=== PATIENT | male | born 1960 | race Caucasian/White ===

== ENCOUNTER 2017-06-11 09:58 | Inpatient (IN) ==
[2017-06-11] MEDS ORDERED: LORazepam 2 MG/ML VIAL ONE (10:08)
[2017-06-11] MEDS ORDERED: 0.9 % SODIUM CHLORIDE 2,000 ML IV ONE (10:12)
[2017-06-11] MEDS ORDERED: LORazepam 2 MG/ML VIAL IV ONE ×3 (10:13→10:29)
[2017-06-11] MEDS ORDERED: fentaNYL 100 MCG/2 ML VIAL IV ONE ×4 (10:16→11:05)
[2017-06-11] MEDS ORDERED: cefTRIAXone 1 GM VIAL ONE (10:24)
[2017-06-11] MEDS ORDERED: LACTATED RINGERS 1,000 ML IV ONE (10:30)
[2017-06-11] MEDS: LORazepam 2 MG/ML VIAL ONE ×2 (10:30→10:31)
[2017-06-11] MEDS ORDERED: cefTRIAXone 1 GM VIAL IV ONE (10:32)
[2017-06-11] MEDS ORDERED: DIPH,PERTUSS(ACELL),TET VAC/PF 0.5 ML SYRINGE IM ONE (10:35)
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
[2017-06-11 10:46] LABS: Basophils # (Auto) 0 K/mcL (0.0-0.3); Basophils % (Auto) 0.3 % (0.0-2.0); Eosinophils # (Auto) 0.3 K/mcL (0.0-0.7); Eosinophils % (Auto) 2.4 % (0.0-7.0); Granulocytes % (Auto) 76.9 % (38.0-78.0); Lymphocytes # (Auto) 1.4 K/mcL (1.5-4.8); Lymphocytes % (Auto) 12.4 % (15.5-49.0); Mean Cell Volume 96.8 fL (80.0-100.0); Mean Corpuscular HGB Conc 34.8 g/dL (31.0-36.0); Mean Corpuscular Hemoglobin 33.7 pg (26.0-34.0); Monocytes # (Auto) 0.9 K/mcL (0.1-0.9); Platelet Count 165 K/mcL (140-440); RBC 3.88 M/mcL (4.50-5.90); Red Cell Distribution Width 12.9 % (11.5-14.5)
[2017-06-11] MEDS ORDERED: ETOMIDATE 20 MG/10 ML VIAL IV ONE (11:05)
[2017-06-11] MEDS ORDERED: ONDANSETRON 4 MG/2 ML VIAL IV ONE (11:05)
[2017-06-11] MEDS ORDERED: GLYCOPYRROLATE 0.2 MG/ML VIAL IV ONE (11:05)
[2017-06-11] MEDS ORDERED: KETAMINE 100 MG/ML ML IV ONE (11:05)
[2017-06-11] MEDS ORDERED: SUCCINYLCHOLINE 20 MG/ML ML IV ONE (11:05)
[2017-06-11] MEDS ORDERED: MIDAZOLAM 2 MG/2 ML VIAL IV ONE (11:05)
[2017-06-11] MEDS ORDERED: LIDOCAINE HCL/PF 100 MG/5 ML SYRINGE IV ONE (11:05)
[2017-06-11 11:07] LABS: ALT/SGPT 42 U/l (0-40); Albumin 4.1 gm/dL (3.2-5.2); Albumin/Globulin Ratio 2.1 (1.0-2.3); Alkaline Phosphatase 56 U/L (39-117); Blood Urea Nitrogen 7 mg/dl (6-20)
[2017-06-11 11:09] LABS: Acetaminophen < 5.0 ug/mL; Salicylate 1.1 mg/dL
[2017-06-11] MEDS ORDERED: MEPERIDINE 25 MG/ML SYRINGE IV PRN (12:22)
[2017-06-11] MEDS ORDERED: IPRATROPIUM/ALBUTEROL 3 ML AMPUL.NEB NEB PRN (12:22)
[2017-06-11] MEDS ORDERED: fentaNYL 100 MCG/2 ML VIAL IV PRN (12:22)
[2017-06-11] MEDS ORDERED: PROMETHAZINE 25 MG/ML VIAL IV PRN ×2 (12:22→13:36)
[2017-06-11] MEDS ORDERED: ONDANSETRON 4 MG/2 ML VIAL IV PRN (12:22)
[2017-06-11] MEDS ORDERED: LACTATED RINGERS 1,000 ML IV SCH (12:30)
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
[2017-06-11] MEDS ORDERED: BACITRACIN 50,000 UNIT VIAL IR ONE (13:28)
[2017-06-11] MEDS ORDERED: cefTRIAXone 1 GM in DEXTROSE 5% IN WATER 50 ML IV SCH (13:36)
[2017-06-11] MEDS: 0.9 % SODIUM CHLORIDE 1,000 ML IV SCH (14:00)
[2017-06-11] MEDS: 0.9 % SODIUM CHLORIDE 10 ML SYRINGE IV SCH ×2 (17:19→22:12)
[2017-06-11] MEDS: SUCRALFATE 1 GM/10 ML ORAL.SUSP PO SCH (18:41)
[2017-06-11] MEDS: LORazepam 2 MG/ML VIAL IV PRN (19:23)
[2017-06-11] MEDS: HYDROmorphone 2 MG/ML VIAL IV PRN (20:56)
[2017-06-11] MEDS: DOCUSATE SODIUM 100 MG CAPSULE PO SCH (20:58)
[2017-06-12] MEDS: 0.9 % SODIUM CHLORIDE 1,000 ML IV SCH ×3 (00:38→19:52)
[2017-06-12] MEDS: SUCRALFATE 1 GM/10 ML ORAL.SUSP PO SCH ×4 (03:12→17:24)
[2017-06-12 04:45] LABS: Mean Cell Volume 97.9 fL (80.0-100.0); Mean Corpuscular Hemoglobin 33.2 pg (26.0-34.0); Platelet Count 91 K/mcL (140-440); RBC 2.84 M/mcL (4.50-5.90); Red Cell Distribution Width 13.4 % (11.5-14.5)
[2017-06-12] MEDS: HYDROmorphone 2 MG/ML VIAL IV PRN ×3 (04:46→19:52)
[2017-06-12 05:04] LABS: ALT/SGPT 27 U/l (0-40); Albumin 3.2 gm/dL (3.2-5.2); Albumin/Globulin Ratio 2.5 (1.0-2.3); Alkaline Phosphatase 42 U/L (39-117); Bilirubin,Direct < 0.2 mg/dL (0.0-0.3); Blood Urea Nitrogen 5 mg/dl (6-20); Gamma Glutamyl Transpeptidase 52 U/L (8-61); Uric Acid 4.8 mg/dL (2.5-8.0)
[2017-06-12] MEDS: 0.9 % SODIUM CHLORIDE 10 ML SYRINGE IV SCH ×2 (05:41→15:52)
[2017-06-12 06:10] LABS: Band Neutrophils % 1 % (0-10); Basophils % (Manual) 1 % (0-2); Eosinophils % (Manual) 1 % (0-7); Lymphocytes % 15 % (15-49); Monocytes % (Manual) 6 % (1-12); Platelet Estimate DECREASED (NORMAL); RBC Morphology NORMAL (NORMAL); Segmented Neutrophils % 76 % (38-78)
[2017-06-12] MEDS: PANTOPRAZOLE 40 MG TABLET PO SCH (07:10)
[2017-06-12] MEDS: cefTRIAXone 1 GM VIAL IV SCH (08:05)
[2017-06-12] MEDS: LORazepam 2 MG/ML VIAL IV PRN (10:25)
[2017-06-12] MEDS: DOCUSATE SODIUM 100 MG CAPSULE PO SCH (12:26)
--- NOTE | 2017-06-12 14:21 | General Surgery Progress Note ---
Subjective Patient reports: feels better, pain is less, no flatus, no bowel movement, afebrile Narrative: Note initiated : 06/12/17 at 2:21 pm Service Date, if different from initiated Date: [] Patient: Trino Juárez 57 y/o M admitted on 06/11/17 for suicidal. Chief Complaint: [Patient is doing better. He is still not totally coherent with his answering of questions. His right leg is warm with full pulses. His incision looks good without any ecchymosis, erythema, swelling. He states that he has very poor appetite and his p.o. intake is marginal.] Objective Temp Pulse Resp BP Pulse Ox 98.6 F 68 16 116/76 97 06/12/17 11:16 06/12/17 08:09 06/12/17 11:16 06/12/17 11:16 06/12/17 11:16 - Additional Data Intake & Output - Last 24 hours: Intake & Output 06/10/17 06/11/17 06/12/17 06/13/17 05:59 05:59 05:59 05:59 Intake Total 6056 / 6056 1195 / 1195 Output Total 2350 / 2350 1000 / 1000 Balance 3706 / 3706 195 / 195 Weight 179 lb 10.828 oz - General physical appearance well developed, well nourished, no distress - Eyes PERRL, normal ocular movement - ENT normal pinna, normal nares, normal mucosa, no hearing loss, no congestion - Neck no masses, no bruits, trachea midline, no lymphadectomy, no venous distension - Cardiovascular Cardiovascular exam: Present: normal rate and rhythm, RRR, +S1, +S2. Absent: JVD - Abdomen non tender, bowel sounds (present), surgical scars (none), masses (none) - Genitourinary normal penis with no external lesions, testicles present, testicles non-tender - Integumentary no rash, no growths, no abnormal pigmentation - Neurologic normal coordination, normal sensation - Musculoskeletal other (Not tested) - Psychiatric oriented to time, oriented to person, oriented to place, speech is normal, memory intact - Labs 06/12/17 03:54 06/12/17 03:54 Diabetes panel 06/12/17 Range/Units 03:54 Sodium 138 (133-145) mmol/L Potassium 3.2 L (3.3-5.1) mmol/L Chloride 105 (96-108) mmol/L Carbon Dioxide 26 (22-30) mmol/L BUN 5 L (6-20) mg/dl Creatinine 0.8 (0.7-1.2) mg/dl Glucose 94 (70-105) mg/dL Calcium 8.0 L (8.6-10.4) mg/dl AST 33 (0-37) U/l ALT 27 (0-40) U/l Alkaline Phosphatase 42 (39-117) U/L Total Protein 4.5 L (5.9-8.4) gm/dL Albumin 3.2 (3.2-5.2) gm/dL Triglycerides 99 (<150) mg/dl Calcium panel 06/12/17 Range/Units 03:54 Calcium 8.0 L (8.6-10.4) mg/dl Phosphorus 2.6 L (2.7-4.5) mg/dL Albumin 3.2 (3.2-5.2) gm/dL Pituitary panel 06/12/17 Range/Units 03:54 Sodium 138 (133-145) mmol/L Potassium 3.2 L (3.3-5.1) mmol/L Chloride 105 (96-108) mmol/L Carbon Dioxide 26 (22-30) mmol/L BUN 5 L (6-20) mg/dl Creatinine 0.8 (0.7-1.2) mg/dl Glucose 94 (70-105) mg/dL Calcium 8.0 L (8.6-10.4) mg/dl Adrenal panel 06/12/17 Range/Units 03:54 Sodium 138 (133-145) mmol/L Potassium 3.2 L (3.3-5.1) mmol/L Chloride 105 (96-108) mmol/L Carbon Dioxide 26 (22-30) mmol/L BUN 5 L (6-20) mg/dl Creatinine 0.8 (0.7-1.2) mg/dl Glucose 94 (70-105) mg/dL Calcium 8.0 L (8.6-10.4) mg/dl Total Bilirubin 0.4 (0.0-1.0) mg/dL AST 33 (0-37) U/l ALT 27 (0-40) U/l Alkaline Phosphatase 42 (39-117) U/L Total Protein 4.5 L (5.9-8.4) gm/dL Albumin 3.2 (3.2-5.2) gm/dL Assessment and Plan (1) Right groin wound Status: Acute Assessment and plan: Incision is unremarkable without evidence of bleeding or inflammation Current Visit: Yes (2) Change in mental status Status: Acute Assessment and plan: Patient remains minimally confused but has periods of fully lucid responses Current Visit: Yes - Time Spent With Patient Total time spent is greater than 50% in coordination of care (as documented) at patient's floor/unit and/or counseling patient:
[2017-06-13] MEDS: 0.9 % SODIUM CHLORIDE 10 ML SYRINGE IV SCH ×3 (00:42→13:50)
[2017-06-13] MEDS: DOCUSATE SODIUM 100 MG CAPSULE PO SCH ×2 (00:42→09:08)
[2017-06-13] MEDS: SUCRALFATE 1 GM/10 ML ORAL.SUSP PO SCH ×3 (02:44→12:44)
[2017-06-13] MEDS: 0.9 % SODIUM CHLORIDE 1,000 ML IV SCH (07:05)
[2017-06-13] MEDS: PANTOPRAZOLE 40 MG TABLET PO SCH (08:55)
[2017-06-13] MEDS: cefTRIAXone 1 GM VIAL IV SCH (09:02)
[2017-06-13] MEDS ORDERED: oxyCODONE/APAP 10/325MG TABLET PO PRN (09:13)
[2017-06-13] MEDS ORDERED: ACETAMINOPHEN 500 MG TABLET PO PRN (09:14)
[2017-06-13] MEDS ORDERED: traMADol 50 MG TABLET PO PRN (09:15)
[2017-06-13] MEDS ORDERED: ACETAMINOPHEN 500 MG TABLET PO ONE (09:20)
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
== END 2017-06-13 13:35 | disposition short-term general hospital (02) | DRG 908 ==
LOC: ED 09:58 → SUR 11:00 → MERGE 13:35 → ICU 13:35
PROVIDERS: ADMIT Family Medicine Adult Medicine; ATTEND Family Medicine Adult Medicine